=== PATIENT | female | born 1980 ===

== ENCOUNTER 2019-01-31 06:29 | Inpatient (IN) | payer OTHER ==
[~2019-01-31] VITALS: Ht 172.7 cm; Wt 81.6 kg
[2019-02-09] MEDS ORDERED: MEGESTROL ACETA20 MG PO (09:10)
[2019-02-09] MEDS ORDERED: ZESTRIL2.5 MG PO (09:10)
[2019-02-14] MEDS ORDERED: ZESTORETIC 10-1 EACH PO (08:00)
[2019-02-16] MEDS ORDERED: LISINOPRIL2.5 MG PO (07:20)
[2019-02-16] MEDS ORDERED: NEURONTIN600 MG PO (07:20)
[2019-02-16] MEDS ORDERED: IBUPROFEN800 MG PO (07:20)
== END 2019-02-16 11:18 | disposition home or self-care (01) | DRG 743 ==
LOC: EDSTATUS 02-09 08:00 → ADM 02-09 08:00 → O/R 02-14 05:15 → OB/GYN 02-14 05:15 → SURH 02-14 08:00 → OB/GYN 02-14 11:10
PROVIDERS: ADMIT Obstetrics & Gynecology
PROC: 0UT90ZZ Resection of Uterus, Open Approach (ICD-10-PCS; principal; 2019-02-14 08:00)
DX: D25.1 Intramural leiomyoma of uterus (principal); D25.0 Submucous leiomyoma of uterus; N93.8 Other specified abnormal uterine and vaginal bleeding; N72 Inflammatory disease of cervix uteri; I10 Essential (primary) hypertension